=== PATIENT | male | born 1975 | race Caucasian/White ===

== ENCOUNTER 2021-12-07 18:11 | Emergency (ER) | payer OTHER ==
[~2021-12-07] VITALS: Ht 175.3 cm; Wt 72.6 kg
[~2021-12-07 18:11] MED LIST: BACTRIM DS TAB1 EAC1 PO; HYDROCODONE-AP1 EAC6 PO; IBUPROFEN 800800 M1 PO; IBUPROFEN 800800 MG PO; NOHOMEMEDICATIONS; NORCO 5-325 TA1 EACH PO; PENICILLIN V P500 MG PO
[2021-12-07 20:41] LABS: ABSOLUTE EOSINOPHILS 0.2 thou/uL (0.0-0.7); ABSOLUTE LYMPHOCYTES 2.3 thou/uL (0.8-5.3); ABSOLUTE MONOCYTES 0.9 thou/uL (0.0-1.2); ABSOLUTE NEUTROPHILS 6.1 thou/uL (1.6-8.1); BASOPHILS 0.4 %; EOSINOPHILS 1.7 %; HEMATOCRIT 46.3 % (42.0-52.0); HEMOGLOBIN 15.5 gm/dL (14.0-18.0); LYMPHOCYTES 23.8 %; MCH 30.3 pg (26.0-34.0); MCHC 33.4 g/dL (28.0-37.0); MCV 90.6 fL (80.0-100.0); MONOCYTES 9.7 %; MPV 7.8 fl. (7.2-11.1); NUCLEATED RBCS 0 /100WBC; PLATELET COUNT* 206 thou/uL (150-400); POLYS 64.4 %; RBC 5.11 mil/uL (4.50-6.00); WBC 9.5 thou/uL (4.0-11.0)
[2021-12-07 20:49] LABS: POTASSIUM 3.8 mmol/L (3.5-5.1)
[2021-12-07 20:54] LABS: TOTAL BILIRUBIN 0.8 mg/dL (<0.1-1.0); TOTAL PROTEIN 7.7 g/dL (6.4-8.2)
[2021-12-07 21:11] LABS: URINE BLOOD NEGATIVE (Negative); URINE CLARITY CLEAR; URINE COLOR YELLOW; URINE GLUCOSE-RANDOM NEGATIVE (Negative); URINE KETONES TRACE (Negative); URINE LEUKOCYTES NEGATIVE (Negative); URINE NITRITE NEGATIVE (Negative); URINE PROTEIN TRACE (Negative); URINE SPECIFIC GRAVITY 1.025 (1.005-1.030)
[2021-12-07 21:12] LABS: URINE BILIRUBIN 1+ (Negative)
[2021-12-07 21:14] LABS: ICTOTEST (BILI CONFIRMATORY) Negative (Negative)
[2021-12-07] MEDS ORDERED: CLEOCIN HCL300 MG PO (21:29)
[2021-12-07] MEDS ORDERED: HYDROCODON-ACE1 EAC8 PO ×2 (22:05→22:07)
[2021-12-07 22:27] VITALS: BP 132/78
== END 2021-12-07 22:28 | disposition home or self-care (01) ==
LOC: M.ERS 18:11
PROVIDERS: Physician Assistant
DX: L03.116 Cellulitis of left lower limb (principal); Z98.890 Other specified postprocedural states